=== PATIENT | male | born 1940 | race Asian ===

== ENCOUNTER → 2017-01-20 | Outpatient (CLI) | payer MEDICAID ==
[~2017-01-20] MED LIST: ALLOPURINOL; ATOR40TA28 PO; D-ME118S13 PO; FENASTERIDE; METF500T4 PO
== END | disposition home or self-care (01) ==
LOC: RADPV 14:34
PROVIDERS: ATTEND Internal Medicine
DX: I70.0 Atherosclerosis of aorta (principal)
CPT/HCPCS: 71020